=== PATIENT | female | born 1990 | race Caucasian/White ===

== ENCOUNTER → 2022-11-04 08:55 | Outpatient (CLI) | payer BC, SELFPAY ==
--- NOTE | ~2022-11-04 | XR_ITS ---
EXAM: XR abdomen/kub 1V DATE: 11/04/2022 09:17 HISTORY: Right uretereal stone . COMPARISON: None available. FINDINGS: Clear lung bases. Normal bowel gas pattern. No organomegaly. Irregular 4 mm calcification projecting adjacent to the right fourth lumbar transverse process. Pelvic phleboliths. Regional bones and soft tissues normal for age. IMPRESSION: Possible 4 mm right proximal ureteral stone. Reviewed, dictated and finalized at location K.
== END ==
PROVIDERS: PCP Urology; Visit Provider Urology
DX: N20.1 Calculus of ureter (principal)
CPT/HCPCS: 74018